=== PATIENT | female | born 1955 | race Hispanic/Latino ===

== ENCOUNTER → 2019-11-19 | Outpatient (CLI) | payer MEDICARE | LOC: MAMMO 14:28 | PROVIDERS: ATTEND Internal Medicine | DX: Z12.31 Encounter for screening mammogram for malignant neoplasm of breast (principal) | CPT/HCPCS: 77067 ==

== ENCOUNTER → 2020-11-25 | Outpatient (CLI) | payer MEDICARE | LOC: MAMMO 14:28 | PROVIDERS: ATTEND Internal Medicine | DX: Z12.31 Encounter for screening mammogram for malignant neoplasm of breast (principal) | CPT/HCPCS: 77067 ==